=== PATIENT | male | born 1970 | race African-American/Black ===

== ENCOUNTER 2023-01-07 09:24 | Emergency (ER) | payer OTHER, MEDICAID, SELFPAY ==
[2023-01-07 09:26] VITALS: BP 154/94; PULSE 95; RESP 20; TEMP 36.9; O2SAT 96
[2023-01-07 09:37] VITALS: BMI 28.5
--- NOTE | 2023-01-07 09:45 | EX.ED.DYSGE1 ---
HPI History of Present Illness Chief Complaint: Lower Extremity Injury [facility] Medical History (Updated 01/07/23 @ 10:[address] James Jacob, DO) Hx of fracture of tibia Home Medications NK 01/07/23 [History Last Taken Unknown] Allergy/AdvReac Type Severity Reaction Status Date / Time No Known Allergies Allergy Verified 01/07/23 09:25 Social History Smoking Status: Never smoker EXAM Physical Exam Const Vital Signs: 01/07/23 09:26 Temperature 98.5 F Temperature Source Temporal Pulse Rate 95 Respiratory Rate 20 H Blood Pressure 154/94 H Blood Pressure Mean 114 Pulse Ox 96 Oxygen Delivery Method Room Air MDM MDM MDM Narrative Medical decision making narrative: HISTORY OF PRESENT ILLNESS: 52-year-old male here with right lower leg and ankle pain. He states he just wants to make sure his fracture is okay wants an x-ray of his leg. Denies any injury or recent trauma notes pain has been persistent since injury several months ago. No chest pain or shortness of breath endorsed. Patient denies active cancer, being bedridden for greater than 3 days, denies unilateral leg swelling, denies any varicose veins, denies any calf tenderness, denies any edema. Denies major surgery within 12 weeks, recent paralysis, previous DVT. REVIEW OF SYSTEMS: Pertinent positives: Leg pain Pertinent negatives: Numbness weakness or loss of sensation. No chest pain or shortness of breath. PHYSICAL EXAM: Nursing triage notes reviewed, Vital signs reviewed Constitutional: please see mdm HENT: MMM Eyes: Pupils equal round and reactive to light, Extraocular muscles intact Neck: No stridor, no JVD, full neck ROM Lungs: Clear to auscultation, No wheezing or rales. No increased work of breathing, no conversational dyspnea, no accessory muscle use, no nasal flaring. No respiratory distress noted Heart: Regular rate and rhythm, No murmurs, No rubs and No gallops, 2+ distal pulses (radial, femoral, posterior tibial) in all extremities Abdomen: Soft, there is no tenderness, rigidity, rebound or guarding, no obvious peritoneal signs, no palpable pulsatile abdominal masses, no auscultated abdominal bruit : No CVAT Extremities: No edema Neuro: Intact sensation L1-S1 dermatomal distributions. Intact 5/5 strength in hip flexion (T12-L3). Knee extension (L2-L4). Ankle dorsiflexion (L4-L5). Ankle plantar flexion (S1). Great toe extension (L5). 2+ patellar and Achilles DTRs. Skin: No rash or lesions noted MEDICAL DECISION MAKING: Chief Complaint: Leg pain External records reviewed: No recent advanced imaging involved extremity Factors affecting care: History of tibial fracture Social determinants of health: none History obtained from others: none Consults: none ALL IMAGES (IF OBTAINED) HAVE BEEN PERSONALLY REVIEWED AND INTERPRETED BY MYSELF. MDM Narrative: The patient was hemodynamically stable, afebrile, nontoxic-appearing. Right lower extremity is neurovascular intact. No obvious evidence of infection or deformity. I considered the following differential diagnosis: Fracture, dislocation, DVT, arterial occlusion, necrotizing fasciitis, septic arthritis There is no clinical evidence to suggest arterial occlusion, no stigmata of VTE, no obvious signs of infection. No joint involvement to suggest septic arthritis. Obtain x-ray to rule out fractures location of the patient's tibia and fibula. X-ray was personally read by myself showed no evidence of acute fracture or dislocation. Patient was given instructions to follow-up with primary care and orthopedic surgery as an outpatient. He is given NSAID instructions, RICE instructions. He was given strict return precautions. The patient and/or family, caregivers express understanding. The patient and/or family, caregivers agrees with the plan. Total critical care time today provided was at least 0 minutes. This excludes separately billable procedures. Critical care time (if documented) is secondary to the patient having high probability of clinically significant/life threatening deterioration in the patient's condition which required my urgent intervention. Shared decision making: I will have a discussion with the patient and or visitors regarding risk/benefits of further testing or admission. They will be made aware of of the risk/benefits inherent in this decision they will be given the opportunity to voice understanding. Discharge Plan Triage Chief Complaint: Lower Extremity Injury ED Provider: James Jacob Dx/Rx/DC Orders Clinical Impression: History of fibula fracture, Acute leg pain Instructions: ED Ankle Fracture, Distal Fibula Prescriptions: No Action NK Primary Care Provider: Paula Love Referrals: Paula Bishop [Non-Staff] - Satnam Mehta DO [Med Staff - Active Staff] - Activity Restrictions/Additional Instructions: Thank you for trusting us with your care today! Please take Tylenol (2 pills, 650 mg), ibuprofen (2 pills, 400 mg) every 6 hours as needed for pain and fever control. Please return to the emergency department if your symptoms change or worsen. Specifically if your extremity becomes cold to touch, changes color to blue or black, has pain that is worsening, or develops unilateral swelling Please follow with your primary care physician for further outpatient evaluation and management. Disposition Disposition: Home, Self Care
--- NOTE | 2023-01-07 10:22 | RAD_ITS ---
STUDY: X-RAY - RIGHT TIBIA AND FIBULA REASON FOR EXAM: Male, 52 years old. Lower leg pain. No recent injury. TECHNIQUE: 4 view(s) of the tibia and fibula were obtained. COMPARISON: None. FINDINGS: Calcaneal spurs. Normal visualized tibia. There is deformity of the distal fibula suggestive of a healed fracture and old avulsion fracture of the lateral malleolus. Asymmetry of the ankle mortise. Soft tissue swelling. RAD/Tibia & Fibula 2 Views IMPRESSION: Findings suggestive of old injury involving the distal fibula and lateral malleolus with persistent overlying soft tissue swelling. Electronically Signed: Fabian Warner MD at 10:41 EDT ,
[2023-01-07 11:44] VITALS: RESP 17
== END 2023-01-07 11:45 | disposition home or self-care (01) ==
PROVIDERS: Emergency Provider Emergency Medicine; Visit Provider Emergency Medicine
DX: S82.402A Unspecified fracture of shaft of left fibula, initial encounter for closed fracture (principal); M25.579 Pain in unspecified ankle and joints of unspecified foot; X58.XXXA Exposure to other specified factors, initial encounter
CPT/HCPCS: 73590; 99282